=== PATIENT | female | born 1995 | race Caucasian/White ===

== ENCOUNTER 2023-07-26 08:26 | Outpatient (CLI) | payer OTHER, SELFPAY ==
--- NOTE | 2023-07-26 08:45 | CRLHL7_ITS ---
For Patients: As a result of the Century Cures Act, medical imaging exams and procedure reports are released immediately into your electronic medical record. You may view this report before your referring provider. If you have questions, please contact your health care provider. INDICATION: First trimester scan, establish dates. COMPARISON: None. TECHNIQUE: Real-time olivera-scale imaging of the pelvis was performed. FINDINGS: Sonographic imaging demonstrates a single living intrauterine gestation. The embryo demonstrates a regular cardiac rate measuring 176 beats per minute. The embryo`s crown-rump length measurement of 1.9 cm corresponds to a gestational age of 8 weeks 3 days with a sonographic due date of 03/03/2024. There is a normal-appearing yolk sac. There are no gross abnormalities noted within the embryo at this early state of development. The gestational sac has a normal appearance. There is no evidence of a perigestational hemorrhage. The amount of fluid within the sac appears appropriate for gestational age. The cervix is closed. The myometrium appears normal. The ovaries are of normal size. Corpus luteal cyst left ovary. There are no suspicious fluid collections noted in the cul-de-sac. IMPRESSION: Normal first trimester OB ultrasound exam. Gestational age calculated at 8 weeks 3 days with a sonographic due date of 03/03/2024. Dictated by Tom Rushing MD @ 07/26/2023 10:07:15 AM (Electronically Signed)
== END 2023-07-26 08:27 | disposition home or self-care (01) ==
LOC: US 08:26
PROVIDERS: Visit Provider Advanced Practice Midwife
DX: Z34.91 Encounter for supervision of normal pregnancy, unspecified, first trimester (principal); Z3A.08 8 weeks gestation of pregnancy
CPT/HCPCS: 76817

== ENCOUNTER 2023-07-26 09:50 | Outpatient (CLI) | payer OTHER, SELFPAY | END 2023-07-26 09:51 | disposition home or self-care (01) | PROVIDERS: Visit Provider Advanced Practice Midwife | DX: Z34.91 Encounter for supervision of normal pregnancy, unspecified, first trimester (principal); Z3A.08 8 weeks gestation of pregnancy | CPT/HCPCS: 86592; 86703; 86704; 86706; 86762; 86787; 86803; 86850; 86900; 86901; 87086; 87340 ==

== ENCOUNTER 2023-10-18 11:58 | Outpatient (CLI) | payer OTHER, SELFPAY ==
--- NOTE | 2023-10-18 12:15 | US_ITS ---
Patient: ROBERT VICTORIA Facility:?[facility] Patient ID:?[id number] Site Patient ID:?[id number]. Site :?[id number] Study:?US-OB Pelvis OB ANATOMY-10/18/2023 1:13:28 PM Ordering Physician:OSKAR TY CNM Final Report: INDICATION: survey. TECHNIQUE: Conventional transabdominal two-dimensional grayscale ultrasound examination. COMPARISON: None. FINDINGS: There is a living fetus with gestational age of 20 weeks 2 days by LMP and 20 weeks 6 days by today`s measurements. EDC based on LMP is 03/04/2024. BPD: 5.1 cm, 21 weeks 4 days Head circumference: 2.1 cm, 21 weeks 2 days Abdominal circumference: 14.9 cm, 20 weeks 1 day Femur length: 3.2 cm, 20 weeks 1 day The weight is estimated at 343 grams, the 44th percentile. The heart rate is measured at 159 beats per minute and the rhythm appears regular. The head and spine are grossly intact. No gross facial abnormality is evident. The upper lip is intact. Four cardiac chambers are demonstrated. The heart and stomach appear to be on the same side. The diaphragm is intact. Two kidneys and a bladder are demonstrated. The cord insertion is normal and three cord vessels are noted. Four extremities are demonstrated. The amniotic fluid volume is within normal limits. The placenta is anterior with no evidence of previa. The cervical length is normal at 4.2 cm. IMPRESSION: 1. Living fetus with gestational age of 20 weeks 2 days by LMP and 20 weeks 6 days by today`s measurements. EDC based on LMP is 03/04/2024. 2. No anomaly evident. Dictated by Hakan Cochran MD @ 10/19/2023 6:40:39 AM Signed by:?Hakan Cochran MD @10/19/2023 6:40:39 AM (Electronic Signature)
== END 2023-10-18 11:59 | disposition home or self-care (01) ==
LOC: US 11:58
PROVIDERS: Visit Provider Advanced Practice Midwife
DX: Z34.92 Encounter for supervision of normal pregnancy, unspecified, second trimester (principal); Z3A.20 20 weeks gestation of pregnancy
CPT/HCPCS: 76805

== ENCOUNTER 2023-12-13 10:05 | Outpatient (CLI) | payer OTHER, SELFPAY | END 2023-12-13 10:06 | disposition home or self-care (01) | LOC: NFLDREF 12-15 10:31 | PROVIDERS: Visit Provider Advanced Practice Midwife | DX: Z34.93 Encounter for supervision of normal pregnancy, unspecified, third trimester (principal); Z3A.28 28 weeks gestation of pregnancy | CPT/HCPCS: 86592 ==

== ENCOUNTER 2024-02-08 11:25 | Outpatient (CLI) | payer OTHER, SELFPAY ==
[2024-02-09 12:38] LABS: Strep B DNA Probe Negative (Negative)
[2024-02-10 13:38] LABS: Strep B Susceptibility Needed? No
== END 2024-02-08 11:26 | disposition home or self-care (01) ==
LOC: NFLDREF 11:25
PROVIDERS: Visit Provider Advanced Practice Midwife
DX: Z34.93 Encounter for supervision of normal pregnancy, unspecified, third trimester (principal); Z3A.36 36 weeks gestation of pregnancy
CPT/HCPCS: 87081; 87653

== ENCOUNTER 2024-03-09 10:16 | Inpatient (IN) | payer OTHER, SELFPAY ==
[2024-03-09] VITALS (17 sets, daily range): BP systolic 113–138; BP diastolic 66–87; PULSE 67–118; RESP 16; TEMP 36.6–36.7; O2SAT 99; BMI 27.8
--- NOTE | 2024-03-09 10:27 | P.LDBA_ITS ---
Subjective History of Present Illness Narrative: Angelica is a 28 yo at 40 5/7 weeks gestation being admitted to Labor and Delivery for spontaneous onset of labor. She reports she had some irregular contractions yesterday with some bloody show. She was able to sleep some of the night but awoke to contractions around 3 am. They were about every 10 minutes and progressively got closer together. She is coping well and supported in labor by her , John. She denies any bleeding or leaking of fluid. Her full history and physical was dictated by MARKEL Lopez on 02/15/2024. Please see this for details. Specific Issues/Plans RN on Med Surg at [facility] H&P completed by MARKEL Lopez on 02/15/2024 1. Hep B Antibody indeterminate Will plan to get vaccinated through [facility]. 2. Nausea and vomiting. Taking VitB6 and Unisom. Zofran, Pepcid. COVID: declined Flu: March 2023 TDAP: given 12/28/2023 32wk Mental Health:PHQ2, GAD0 34wk Hgb:--call only if abnormal, otherwise release to portal OB - Problem Based A/P Additional Plan (1) Pain during labor: Status: Acute (2) Spontaneous onset of labor: Status: Acute (3) 40 weeks gestation of : Status: Acute (4) Post term over 40 weeks: Status: Acute Plan ASSESSMENT:? 28 yo at 40 5/7 weeks gestation? complicated by: none Labor type: Spontaneous, Early labor? Category 1 FHR pattern.?? Labor complicated by: none? GBS negative? ? PLAN:? 1. Routine intrapartum cares as ordered. Continue with expectant management? 2. Monitoring per policy, intermittent? 3. Planning unmedicated . Desires water . Consent signed. Hep C negative. Candidate for analgesia of choice, if desired.?? 4. Patient encouraged to reposition and ambulate to promote physiologic labor and .? 5. Anticipate ? Delivery/Labor/Induction Plan Plan: expectant management OB Exam Physical Exam Vital signs: Temp Pulse Resp BP Pulse Ox 97.8 F 77 16 127/87 99 03/09/24 09:51 03/09/24 10:20 03/09/24 09:51 03/09/24 10:20 03/09/24 09:49 Narrative: Vitals Reviewed Constitutional:? Alert and oriented x3 HEENT:? Normocephalic, atraumatic Neck:? Supple Lungs:? Clear to auscultation bilaterally Heart:? Regular rate and rhythm, no murmur, rub or gallop Abdomen:? Soft, nontender, and gravid. Vertex by Braulio's, confirmed with cervical exam. Extremities:? No edema or erythema Cervix: 3 cm/60%/-1 station/vertex NST: 135 bpm/moderate variability/15x15 accelerations/no decelerations/contractions every 2-4 minutes Detailed Labor and Delivery Exam Patient Gravid: Yes
--- NOTE | 2024-03-09 18:52 | PM.OBPNL ---
Subjective Date Seen: 03/09/24 Narrative: Angelica is a 28 yo G1 at 40 5/7 weeks gestation that presented this morning for spontaneous labor. Her labor has progressed normally on her own. She was feeling intermittent pressure with urge to push. She is coping well with contractions. She has repositioned frequently and is open to continued labor position changes. Exam recommended due to urge to push with little change. Recommended AROM and encouraged to breath through contractions. She is supported in labor by her . Objective Exam: Objective: Constitutional: Alert and oriented x3, moderate distress, coping well Vital signs stable, see nurse documentation Abdomen: gravid, contractions palpate moderate/strong with contractions and soft between Cervix: 7 cm/100%/0 station/vertex, AROM for clear fluid; cervix palpated more after exam Intermittent auscultation FHR 140's Vital Signs: Last Vital Signs Temp 97.8 F 03/09/24 09:51 Pulse 78 03/09/24 14:59 Resp 16 03/09/24 09:51 BP 123/80 03/09/24 14:59 Pulse Ox 99 03/09/24 09:49 Plan Plan: ASSESSMENT:? 28 yo at 40 5/7 weeks gestation? complicated by: none Labor type: Spontaneous, Active labor? Reassuring heart tones? Labor complicated by: none? GBS negative? ? PLAN:? 1. Routine intrapartum cares as ordered. Recommended AROM, performed with consent. Encouraged position changes with side lying release to assist in labor progress. Encouraged the breath even with pressure and avoid pushing unless urge returns. Patient is agreeable to plan. 2. Monitoring per policy, intermittent? 3. Planning unmedicated . Desires water . Consent signed. Hep C negative. Candidate for analgesia of choice, if desired.?? 4. Patient encouraged to reposition and ambulate to promote physiologic labor and .? 5. Anticipate ?
[2024-03-09] MEDS: LIDOCAINE 1 % PF 30 ML INJECTION (21:33)
[2024-03-09] MEDS: OXYTOCIN 10 UNIT/ML INJ IM (22:03)
--- NOTE | 2024-03-09 22:08 | W.PM.OBVAGDE ---
OB Procedure Vag Delivery Mother Details Mother Details: The patient is a 28 year-old, 1, now Para 1, admitted on 03/09/24 at 40 5/7 gestation. : 1 Para: 1 Weeks Gestation: 40.5 Admission Date: 03/09/24 Additional Details Amniotic Membrane Status: AROM Amniotic Membrane Rupture Date: 03/09/24 Amniotic Membrane Rupture Time: 17:59 Amniotic Membrane Fluid Description: Clear Analgesia/Anesthesia Type: Local Waterbirth: Yes Pitcoin: Yes (AMTSL) Intrapartal Events: None Labor Onset: 15:27 Complete: 20:30 Pushin:30 Heart: heart tones during second stage were reassuring via intermittent auscultation throughout. Delivery Details Delivery Date: 03/09/24 Delivery Time: 21:07 Route of delivery: Infant Gender: Male Infant Viability: Alive; Heart Rate Present Position at Delivery: OA Delivery Details: Patient was admitted for spontaneous onset of labor and progressed normally. She coped well with repositioning and with the labor warm-up and tub for a short time. She began to feel pressure with urge and occasional pushing with urge around 1700. When no change in patient feeling or progress, cervical exam was recommended. At this time she was 7 cm and AROM was performed with consent for clear fluid at 1759. She was encouraged to breath through contractions and try not to push with urge as much as possible. RN assisted patient into side lying release and pressure became very intense. Again an SVE was recommended and patient was still 7 cm. She was offered epidural or guidance on how relax her pelvis to allow descent and dilation. Patient was able to cope with trying to relax and elected to re-enter the tub. Rectal pressure and urge was then so intense, SVE was performed in the tub per patient request. At this time, she was found to be anterior lip but pushing uncontrollably with contractions. Reduction of anterior lip was discussed with patient and performed with consent. Cervial lip was reduced with success and patient was complete with pushing at 2030. of a viable male at 2107 semi-reclined in the tub. Vertex delivered OA, nuchal was identified and reduced. No shoulder. Body delivered easily and without incident and mother assisted in bring up to her chest with a vigorous cry. Cord was clamped and cut at > 5 minutes. APGARS were 8 at one minute and 9 at five minutes respectively. Mouth was bulb suctioned. Intact placenta with a 3 vessel cord delivered spontaneously at 2020. Fundus firm. Right labial laceration was identified and repaired in typical fashion. QBL 100 cc + EBL 200 cc in the tub, total 300 cc. Mother and baby stable; mother plans to breastfeed. Infant weight pending. 1 Minute Interval Total Score: 8 5 Minute Interval Total Score: 9 Additional Details Shoulder Dystocia: No Placenta Delivery Time: 20:21 Placental Delivery Description: Spontaneous Delivery repair: Vicryl Procedure Done: Global Blood Loss: 300 Laceration: Labial Blood Loss Measurement Type: QBL Bakri Used: No Sponge/Need Count Correct: Yes Cord Vessel Description: 3 Vessels, Nuchal Cord (x1), Loose and Reduced Event Summary Status: Mother and were stable after delivery. Disposition: floor
[2024-03-10] MEDS: IBUPROFEN 600 MG TABLET PO ×2 (00:09→22:35)
[2024-03-10 04:10] VITALS: BP 114/73; PULSE 89; RESP 16; TEMP 36.9; O2SAT 97
--- NOTE | 2024-03-10 08:24 | P.OBPN_ITS ---
OB - PN:Subj Subjective Date Seen: 03/10/24 Narrative: The patient feels well.? The pain is well controlled with current medications.? She has no new complaints.? Urinary output is adequate and she is voiding without difficulty.? Has a good appetite, is tolerating a general diet, is passi ng flatus, and has not had a bowel movement.? Has scant amount of rubra lochia.? She is ambulating well. She is and reports it is going well.?She is starting to get some nipple tenderness. Angelica was gushing over her labor support and so proud of how strong she was. She is extremely happy with her experience. OB - PN: Obj Exam Physical Exam: Vital signs: Temp Pulse Resp BP Pulse Ox O2 Del Method 98.4 F 89 16 114/73 97 Room Air 03/10/24 04:10 03/10/24 04:10 03/10/24 04:10 03/10/24 04:10 03/10/24 04:10 03/10/24 04:10 Narrative: GENERAL APPEARANCE:? normal affect, alert, no distress MOOD:? appropriate CHEST:? clear to auscultation HEART:? regular rate and rhythm ABDOMEN:? soft, non-tender the uterine fundus is 1 cm below Umbilicus, Midline and is appropriate for the stage of recovery. EXTREMITIES:? normal and minimal edema OB - PN: A/P Delivery Assessment and Plan (1) Laceration of labial mucosa without complication: Status: Acute (2) Lactating mother: Status: Acute (3) care and examination: Status: Acute Plan S/P with labial laceration Lactating PP day 1 P: Routine PP care with support Anticipate discharge 03/11/2024.
[2024-03-10 08:54] VITALS: BP 128/84; PULSE 91; RESP 15; TEMP 36.7; O2SAT 98
[2024-03-10 11:36] VITALS: BP 117/80; PULSE 92; RESP 16; TEMP 36.8; O2SAT 98
[2024-03-10 17:20] VITALS: BP 110/73; PULSE 78; RESP 16; TEMP 36.6; O2SAT 98
[2024-03-10 22:28] VITALS: BP 110/72; PULSE 78; RESP 16; TEMP 36.6; O2SAT 97
[2024-03-10] MEDS: DOCUSATE SODIUM 100 MG CAPSULE PO (22:35)
[2024-03-11 04:29] VITALS: BP 113/71; PULSE 67; RESP 16; TEMP 36.6; O2SAT 99
--- NOTE | 2024-03-11 08:55 | PM.OBDSVD1 ---
DS: Providers Provider Date Seen: 03/11/24 Date of admission: 03/09/24 10:16 Primary care physician: Not a Local Provider Admitting Clinician: Anastasia Ring CNM Attending Physician on discharge: Anastasia Ring CNM Date of Discharge: 03/11/24 DS: Diagnosis Discharge Diagnosis (1) care and examination: Status: Acute (2) Lactating mother: Status: Acute (3) Laceration of labial mucosa without complication: Status: Acute Exam Narrative: Exam Narrative: GENERAL APPEARANCE:? normal affect, alert, no distress? MOOD:? appropriate? CHEST:? clear to auscultation and percussion? HEART:? regular rate and rhythm? ABDOMEN:? soft, non-tender the uterine fundus is U/2 and is appropriate for the stage of recovery.? PERINEUM:? mild edema of the perineum, there is a labial laceration that is healing well.? EXTREMITIES:? normal and no edema? Const: Vital Signs, click to edit/add: Vital Signs - 24 hr 03/10/24 11:36 03/10/24 17:20 03/10/24 22:28 Temperature 98.3 F 97.9 F 98 F Pulse Rate [Pulse Oximeter] 92 78 78 Respiratory Rate 16 16 16 Blood Pressure [Le ft Arm] 117/80 110/73 110/72 Pulse Oximetry 98 98 97 Oxygen Delivery Me thod Room Air Room Air Room Air 03/11/24 04:29 Temperature 98 F Pulse Rate [Pulse Oximeter] 67 Respiratory Rate 16 Blood Pressure [Le ft Arm] 113/71 Pulse Oximetry 99 Oxygen Delivery Me thod Room Air Documenting provider has reviewed patient's vital signs: yes OB - DS: Summary Hospital Course Hospital Course: Angelica is a 28 year old G 1 P 1 at 40.5 weeks gestation that was admitted to the Center on 03/09/24 for spontaneous labor. She had an uncomplicated vaginal delivery. She delivered a viable male . She is breast feeding and denies. Her pain is well controlled with current medications.? She has no new complaints.? Urinary output is adequate and she is voiding without difficulty.? Has a good appetite, is tolerating a general diet, is passing flatus, and has not had a bowel movement.? Has scant amount of rubra lochia.? She is ambulating well.?She is planning an IUD for contraception. Peripartum Data Infant delivery method: Vaginal Laceration description: Labial Episiotomy description: None complications: none [place] Gender: Male Infant Discharge Plan: Home Status at Discharge Functional status at discharge: independent ambulation Overall status at discharge: patient is progressing back to baseline Time Spent with Patient Time attestation: Total time spent providing and/or coordinating discharge services: Discharge Plan Discharge Disposition: Home, Self-Care Date of Admission: 03/09/24 10:16 Primary Care Provider: Provider,Not a Local Condition: Stable Anticipated Discharge Date/Time: 03/11/24 13:00 Discharge Medications: New docusate sodium 100 mg Capsule 100 mg PO DAILY Qty: 90 0RF Rx Instructions: Take 1-2 tablets daily as needed for constipation. ibuprofen 600 mg Tablet 600 mg PO Q6H PRNQty: 30 0RF Continued Gummies 400 mcg-35 mg- 25 mg-5 mg tablet,chewable 1 tab PO DAILY Discharge Orders: Discharge Order (Routine); Ordered 03/11/24 Ordered By: Francine Dewey Patient Education: OB Vaginal/Breast Feeding Activity Level: Activity as Tolerated Discharge Diet: Regular Follow Up Appointments: [facility] [Provider Group] Provider,Not a Local [Primary Care Provider] - Forms: Alignable Info Instructions
[2024-03-11] MEDS: DOCUSATE SODIUM 100 MG CAPSULE PO (09:00)
[2024-03-11 09:28] VITALS: BP 112/77; PULSE 78; RESP 16; O2SAT 98
== END 2024-03-11 15:15 | disposition home or self-care (01) | DRG 807 ==
LOC: OB OUT 10:16 → OB 10:16
PROVIDERS: Admitting Provider Advanced Practice Midwife; Visit Provider Advanced Practice Midwife
DX: O48.0 Post-term pregnancy (principal); Z37.0 Single live birth; O70.0 First degree perineal laceration during delivery; Z3A.40 40 weeks gestation of pregnancy
CPT/HCPCS: 86592; G0463; A9270; J2001; J2590